=== PATIENT | female | born 1965 | race Caucasian/White ===

== ENCOUNTER 2018-07-13 12:25 | Emergency (ER) | payer OTHER ==
[2018-07-13 16:12] LABS: ADD MAN DIFF? NO
[2018-07-13 16:18] LABS: BASOPHILS % 0.3 % (0.0-2.0); EOSINOPHILS # 0.4 10^3/ul (0.0-0.5); EOSINOPHILS % 6.2 % (0.0-7.0); HEMATOCRIT 39.7 % (37.0-47.0); HEMOGLOBIN 12.8 g/dl (12.0-16.0); LYMPHOCYTES # 2.5 10^3/ul (0.8-2.9); LYMPHOCYTES % 39.2 % (15.0-51.0); MEAN CORPUSCULAR HEMOGLOBIN 30.4 pg (29.0-33.0); MEAN CORPUSCULAR HGB CONC 32.2 g/dl (32.0-37.0); MEAN CORPUSCULAR VOLUME 94.3 fl (82.0-101.0); MEAN PLATELET VOLUME 10.2 fl (7.4-10.4); MONOCYTES % 15.6 % (0.0-11.0); NEUTROPHIL # 2.4 10^3/ul (1.6-7.5); NEUTROPHILS % 38.4 % (39.0-77.0); PLATELET COUNT 132 10^3/UL (140-415); RED BLOOD COUNT 4.21 10^6/ul (4.20-5.40); RED CELL DISTRIBUTION WIDTH 14.1 % (11.5-14.5)
[2018-07-13 16:18] LABS: WHITE BLOOD COUNT 6.3 10^3/ul (4.8-10.8)
[2018-07-13] MEDS: SOD CHLORIDE 0.9% 1,000 ML IV (16:20)
[2018-07-13 16:35] LABS: ANION GAP 4 (5-13); BLOOD UREA NITROGEN 11 mg/dl (7-20); CARBON DIOXIDE 31 mmol/L (21-31); CHLORIDE 101 mmol/L (97-110); CHOL/HDL RATIO 2.6 RATIO; CHOLESTEROL 134 mg/dl (100-200); CREATININE 0.83 mg/dl (0.44-1.00); Estimated GFR > 60 mL/min (>60); GLUCOSE 134 mg/dl (70-220); HDL CHOLESTEROL 51 mg/dl (37-92); LDL CHOLESTEROL,CALCULATED 66 mg/dl; POTASSIUM 4.4 mmol/L (3.5-5.1); SODIUM 136 mmol/L (135-144); TRIGLYCERIDES 85 mg/dl (0-149)
[2018-07-13 16:40] LABS: VALPROATE 85 ug/ml (50-100)
[2018-07-13 16:48] LABS: TROPONIN-I < 0.012 ng/ml (0.000-0.120)
[2018-07-13 18:03] LABS: INR 0.96; PROTIME 12.9 Sec (11.9-14.9)
[2018-07-13 18:04] LABS: PARTIAL THROMBOPLASTIN TIME 26.3 Sec (23.0-35.0)
== END 2018-07-13 19:52 | disposition home or self-care (01) ==
LOC: E/R 12:25
DX: R55 Syncope and collapse (principal); R53.1 Weakness; E11.9 Type 2 diabetes mellitus without complications; I10 Essential (primary) hypertension; Z79.82 Long term (current) use of aspirin
CPT/HCPCS: 36415; 70450; 71045; 80048; 80061; 80164; 82962; 83036; 84484; 85025; 85610; 85730; 99285-25